=== PATIENT | male | born 2000 | race Caucasian/White ===

== ENCOUNTER 2024-07-19 10:46 | Emergency (ER) | payer OTHER, SELFPAY ==
[2024-07-19 10:55] VITALS: BP 143/87; PULSE 94; RESP 18; TEMP 36.5
--- NOTE | 2024-07-19 11:19 | W.ED.GENAD ---
Discharge Plan Disposition Patient Disposition: Home Condition: Stable Discharge Details Clinical Impression: Laceration of finger of left hand Primary Care Provider: None,None ED Provider: Jairo Hopkins Home Meds and New Rx's Prescriptions: No Action No Known Home Meds Discharge Instructions Instructions: Laceration Repair With Stitches ED Additional Instructions: Sutures should be removed in 12 to 14 days. Please follow-up with your primary care physician or express care for suture removal. You received a tetanus booster today. Return to the emergency department immediately for any worsening or new concerning symptoms. Referrals: [facility] [Provider Group] [facility] General Mode of arrival: ambulatory. Date/Time Provider Initiated Documentation: 07/19/24 11:08. Limitations to Documentation: no limitations. Information obtained by: patient. HPI Narrative: HISTORY OF PRESENT ILLNESS The patient is a 23-year-old male presenting with a laceration on his right fifth digit. He sustained the injury 1.5 hours ago while pulling up tile. Bleeding has ceased. He is unsure of his last tetanus vaccination and lacks a primary care physician due to no insurance. He is not on any medications and reports no other injuries. He recalls a previous knuckle fracture on the same hand a few years ago. Related Data Home Medications ?Medication ?Instructions ?Recorded ?Confirmed Unknown [No Known Home Meds] 07/19/24 07/19/24 Allergies Allergy/AdvReac Type Severity Reaction Status Date / Time No Known Allergies Allergy Unverified 07/19/24 11:28 General Stated Complaint: Laceration WENDY: 3 Review of Systems Integumentary/Breasts Skin/Breast: Reports as per HPI Exam Narrative Exam Narrative: PHYSICAL EXAM General Appearance: Normal. Vital signs: Within normal limits.. Skin: Warm and dry, no rash. Laceration 2 cm distal left fifth digit palmar. Neurological: Normal. Extremities: Right fifth digit: full strength, range of motion, intact distal sensation. Course Vital Signs Vital signs: Vital Signs Temperature 36.5 C 07/19/24 10:55 Pulse 94 H 07/19/24 10:55 Respiratory Rate 18 07/19/24 10:55 Blood Pressure 143/87 H 07/19/24 10:55 Temperature 36.5 C 07/19/24 10:55 Pulse 94 H 07/19/24 10:55 Respiratory Rate 18 07/19/24 10:55 Blood Pressure 143/87 H 07/19/24 10:55 Oxygen Delivery Method Room Air 07/19/24 10:55 Oxygen Flow Rate 0 07/19/24 10:55 Procedure Laceration Laceration 1: Date of Procedure: 07/19/24 Time of procedure: 12:00 Provider that performed the procedure: Jairo Hopkins Standard Time Out Performed: Yes Patient Consented: Verbally Site: hand Side (If applicable): left Description: linear Depth: simple, single layer Local anesthetic: other anesthetic (LET) Pre-repair:: wound explored, irrigated extensively and deep structures intact Skin layer closed with: nylon Suture size: 4-0 Number of sutures:: 3 Technique: simple, interrupted Complications: None Medical Decision Making ASSESSMENT AND PLAN Initial Assessment: Laceration on distal right fifth digit. Deep, full-thickness. ED Course: - Irrigated with sterile solution. - Administer tetanus vaccine today. - Discussed potential side effects. - Repair with stitches after numbing cream. - Option to perform stitches without lidocaine. Final Assessment: The patient presented with a deep, full-thickness laceration on the distal right fifth digit. The wound was irrigated with a sterile solution, and a tetanus vaccine was administered. The potential side effects of the vaccine were discussed. The plan includes repairing the laceration with stitches after applying numbing cream, with the option to perform the stitches without lidocaine. Clinical Impression: - Laceration on distal right fifth digit Disposition: - Discharge MDM Components Evaluation: - Number of Differential Diagnoses or Management Options: Laceration on distal right fifth digit - Amount and Complexity of Data Reviewed: None - Risk of Complication and Morbidity or Mortality: Low risk with proper wound care and tetanus prophylaxis. This document was written with the assistance of MEMO Linder. The patient consented to its use. Quality:[facility] Related Social Needs: No Data to Display [facility] All Active Problems (Updated 07/19/24 @ 11:25 by Jairo Hopkins MD) Laceration of finger of left hand (Acute) Social History Smoking/Tobacco Use Status: Current every day Smoking risk assessment performed?: Yes Alcohol Intake: current Alcohol Intake frequency: a few times a month
[2024-07-19] MEDS: Diph,Pertuss(Acell),Tet Vac/Pf 0.5 ML SYR IM (11:27)
[2024-07-19] MEDS: Lidocaine/Epinephri/Tetracaine Topical Gel 3 ML TP (11:27)
[2024-07-19] MEDS: Bupivacaine 0.5% Pres-Free 30 ML VIAL IJ (11:27)
== END 2024-07-19 12:14 | disposition home or self-care (01) ==
PROVIDERS: Emergency Provider Student in an Organized Health Care Education/Training Program
DX: S61.217A Laceration without foreign body of left little finger without damage to nail, initial encounter (principal); Z23 Encounter for immunization; W26.9XXA Contact with unspecified sharp object(s), initial encounter; Y93.H3 Activity, building and construction; Y92.89 Other specified places as the place of occurrence of the external cause; Y99.0 Civilian activity done for income or pay
CPT/HCPCS: 12001; 90471; 90715; 99283; J0665